=== PATIENT | female | born 1970 | race Caucasian/White ===

== ENCOUNTER → 2017-03-19 | Outpatient (CLI) | payer BC ==
--- NOTE | 2017-03-23 11:28 | MM ---
Reason for exam: screening (asymptomatic). Last mammogram was performed 1 year ago. History: Patient is postmenopausal. Family history of breast cancer in maternal cousin at age 40 and breast cancer in cousin at age 40. Benign ultrasound-guided core biopsy of the left breast, January 28, 2000. Core biopsy of the left breast. Took hormonal contraceptives for 10 years. Physical Findings: A clinical breast exam by your physician is recommended on an annual basis and results should be correlated with mammographic findings. MG 3D Screening Mammo W/Cad Bilateral CC and MLO view(s) were taken. XCCL view(s) were taken of the left breast. Prior study comparison: March 18, 2016, bilateral MG 3d screening mammo w/cad. March 14, 2015, bilateral MG work up mamm w CAD BILAT. The breast tissue is extremely dense which could obscure a lesion on mammography. Finding: There is a 8mm and 6mm oval, round mass in the right breast. Previous mammotome biopsy in the left breast. New finding since March 18, 2016 and March 14, 2015. ASSESSMENT: Incomplete: need additional imaging evaluation, BI-RAD 0 RECOMMENDATION: Ultrasound of the right breast. [facility] will attempt to contact patient to return for ultrasound.
== END ==
LOC: RADMAMWWP 08:09
PROVIDERS: ATTEND Obstetrics & Gynecology
DX: Z12.31 Encounter for screening mammogram for malignant neoplasm of breast (principal); Z80.3 Family history of malignant neoplasm of breast
CPT/HCPCS: 77063; G0202

== ENCOUNTER → 2017-03-25 | Outpatient (CLI) | payer BC ==
--- NOTE | 2017-03-25 12:12 | USB ---
Reason for exam: additional evaluation requested from abnormal screening. History: Patient is postmenopausal. Family history of breast cancer in maternal cousin at age 40 and breast cancer in cousin at age 40. Benign ultrasound-guided core biopsy of the left breast, January 28, 2000. Core biopsy of the left breast. Took hormonal contraceptives for 10 years. Physical Findings: Nurse did not find any significant physical abnormalities on exam. US Breast Workup RT Right breast ultrasound includes all four quadrants, the retroareolar region and axilla. Finding demonstrates a 0.3 x 0.4 x 0.2cm stable, benign, oval lesion too small to characterize at 12 o'clock, a 0.8 x 1.1 x 0.5cm oval, mixed lesion at 4 o'clock versus 7 x 8 x 6mm previously, increased in size not with internal echoes, this may correspond to the mammographic finding for which a 6 month follow up is recommended, a 0.3 x 0.3 x 0.1cm oval lesion too small to characterize at 6 o'clock, likely cystic, a 0.6 x 0.5 x 0.2cm oval, benign, cystic lesion at 8 o'clock, a 0.6 x 0.4 x 0.2cm cystic cluster at 8 o'clock, a 1.1 x 1.1 x 0.3cm oval, mixed lesion at 9 o'clock for which a 6 month follow up is recommended, a 0.5 x 0.3 x 0.3cm oval, hypoechoic lesion at 9 o'clock for which a 6 month follow up is recommended and a 0.5 x 0.8 x 0.2cm oval, hypoechoic lesion at 9 o'clock for which a 6 month follow up is recommended. These 9 o'clock areas were not seen on 03/14/15. These results were verbally communicated with the patient and result sheet given to the patient on 03/25/17. ASSESSMENT: Probably benign, BI-RAD 3 RECOMMENDATION: Ultrasound of the right breast in 6 months. (attention 4 o'clock and 9 o'clock x 3)
== END | disposition home or self-care (01) ==
LOC: RADUSWWP 07:10
PROVIDERS: ATTEND Obstetrics & Gynecology
DX: R92.8 Other abnormal and inconclusive findings on diagnostic imaging of breast (principal)

== ENCOUNTER → 2018-10-12 | Outpatient (CLI) | payer BC ==
[2018-10-12 08:39] LABS: Basophils % (A) 1 %; Eosinophils # (A) 0.1 k/uL (0-0.7); Eosinophils % (A) 4 %; HCT 41.2 % (34.0-46.0); HGB 13.5 gm/dL (11.4-16.0); Lymphocytes # (A) 1.1 k/uL (1.0-4.8); Lymphocytes % (A) 32 %; MCH 29.6 pg (25.0-35.0); MCHC 32.9 g/dL (31.0-37.0); Mean Platelet Volume 6.8; Monocytes # (A) 0.2 k/uL (0-1.0); Monocytes % (A) 6 %; Neutrophils # (A) 1.9 k/uL (1.3-7.7); Neutrophils % (A) 55 %; Platelet Count 277 k/uL (150-450); RBC 4.58 m/uL (3.80-5.40); RDW 13.7 % (11.5-15.5); WBC 3.4 k/uL (3.8-10.6)
[2018-10-12 16:24] LABS: T4, Free (Free Thyroxine) 1.1 ng/dL (0.80-1.80)
[2018-10-12 16:26] LABS: Albumin 4.6 g/dL (3.80-4.90); Albumin/Globulin Ratio 2.56 (1.60-3.17); Anion Gap 6.8 mmol/L (4.00-12.00); Calcium 9.4 mg/dL (8.7-10.3); Carbon Dioxide 27.2 mmol/L (21.6-31.8); Globulin 1.8 g/dL (1.6-3.3); Potassium 4.2 mmol/L (3.5-5.5); Total Bilirubin 0.7 mg/dL (0.2-1.2); Total Protein 6.4 g/dL (6.2-8.2)
[2018-10-12 16:41] LABS: Gliadin AB IgA, Unit 1.4 U/mL
== END | disposition home or self-care (01) ==
LOC: LABWHC1 07:58
PROVIDERS: ATTEND Internal Medicine
DX: R19.4 Change in bowel habit (principal)
CPT/HCPCS: 36415; 80053; 82150; 83516; 83690; 84439; 84443; 85025

== ENCOUNTER → 2018-10-12 | Outpatient (CLI) | payer BC ==
--- NOTE | 2018-10-12 08:26 | USB ---
Reason for exam: follow-up at short interval from prior study. History: Patient is postmenopausal. Family history of breast cancer in maternal cousin at age 40 and breast cancer in cousin at age 40. Benign ultrasound-guided core biopsy of the left breast, January 28, 2000. Core biopsy of the left breast. Took hormonal contraceptives for 10 years. Physical Findings: Nurse did not find any significant physical abnormalities on exam. US Breast LT Left complete breast ultrasound includes all four quadrants, the retroareolar region and axilla. Finding demonstrates a 6 x 3 x 6mm oval, lobular, cystic, benign lesion at 1 o'clock, a 2 x 2 x 3mm oval, hypoechoic, minimally complicated cyst at 3 o'clock, a 5 x 5 x 5mm oval, cystic, benign lesion at 4 o'clock, a 6 x3 x 6mm lobular, cystic lesion at 5 o'clock likely represent with BI-RAD 3 mass by description, prior measurement of 1.6 x 0.7 x 1.3cm, no growth, no other suspicious mass at 4-5 o'clock, a 7 x 4 x 4mm lobular, cystic, benign lesion at 11 o'clock and a 8 x 4 x 6mm oval, cystic, benign lesion at the posterior nipple. Outside report only ultrasound images no available for comparison. These results were verbally communicated with the patient and result sheet given to the patient on 10/12/18. ASSESSMENT: Probably benign, BI-RAD 3 RECOMMENDATION: Follow-up diagnostic mammogram of both breasts in 6 months. Ultrasound of the left breast in 6 months. (attention 4-5 o'clock, patient will be due for bilateral mammogram in March 2019)
== END | disposition home or self-care (01) ==
LOC: RADUSWWP 07:09
PROVIDERS: ATTEND Obstetrics & Gynecology
DX: Z09 Encounter for follow-up examination after completed treatment for conditions other than malignant neoplasm (principal)

== ENCOUNTER 2018-10-14 12:48 | Day surgery (SDC) | payer BC ==
[2018-10-13 08:46] VITALS: BMI 21.0
[2018-10-14 13:20] LABS: Glucose,Whole Blood 72 mg/dL (75-99)
[2018-10-14 13:24] VITALS: TEMP 98.1
[2018-10-14] MEDS ORDERED: LIDOCAINE 1% 20 ML VIAL (10MG/ML) FOR IV START INTRADERMA ONE (13:30)
[2018-10-14] MEDS ORDERED: DEXTROSE 50% SYRINGE 50 ML IVP ONE (13:30)
[2018-10-14] MEDS: IV FLUID CONTINUATION 1,000 ML IV ONE (13:36)
[2018-10-14] MEDS ORDERED: LACTATED RINGERS 1,000 ML IV ONE (13:36)
[2018-10-14] MEDS ORDERED: MIDAZOLAM (PF) 2 MG/2 ML VIAL IV ONE (13:38)
[2018-10-14] MEDS ORDERED: PROPOFOL 10 MG/ML 20 ML VIAL IV ONE (13:46)
[2018-10-14] MEDS ORDERED: fentaNYL (PF) 50 MCG/ML 2 ML AMP ONE (13:46)
[2018-10-14] MEDS ORDERED: MIDAZOLAM 2 MG/2 ML VIAL ONE (13:46)
[2018-10-14 13:55] LABS: Glucose,Whole Blood 126 mg/dL (75-99)
[2018-10-14 14:42] VITALS: PULSE 75; RESP 16
--- NOTE | 2018-10-14 14:42 | P.PCN ---
Date of Procedure: 10/14/18 Description of Procedure: BRIEF HISTORY: 48-year-old female who was seen in the outpatient setting for alternating constipation and diarrhea. The patient had previously been on a fiber supplement which she had stopped earlier in the year. When seen in evaluation she has reported increased gaseous distention. She also has a history of hemorrhoidal disease which she reports that within inflamed prior to presentation. She states her last colonoscopy was approximately 10 years ago a nd done in evaluation of bleeding around her periods which she says was secondary to endometriosis. She reports a burning uncomfortable feeling mainly occurring on the left side of her abdomen. PROCEDURE PERFORMED: Colonoscopy with biopsy. PREOPERATIVE DIAGNOSIS: Altered bowel habits, bright red blood per rectum, last colonoscopy approximately 10 years ago, lower abdominal pain. ESTIMATED BLOOD LOSS: Minimal. IV sedation per Anesthesia. PROCEDURE: After informed consent was obtained, the patient, was brought into the endoscopy unit. IV sedation was administered by Anesthesia under continuous monitoring. Digital rectal examination was normal. Initially the Olympus CF-190 flexible video colonoscope was then inserted in the rectum, gradually advanced into the cecum without any difficulty. Careful examination was performed as the scope was gradually being withdrawn. Ileocecal valve and the appendiceal orifice were visualized and appeared normal. Terminal ileum intubated and biopsied. Prep was excellent. Mucosa of the cecum, ascending colon, transverse colon, descending colon, sigmoid colon, and rectum appeared normal, With random biopsies of the right colon, transverse colon and left colon in the setting of altered bowel habits. Retroflexion was performed in the rectum and no lesions were seen, Mild internal hemorrhoids noted. The patient tolerated the procedure well. IMPRESSION: Normal-appearing colon from rectum to cecum and terminal ileum with random biopsies of the terminal ileum, right colon, transverse colon and left colon. Mild internal hemorrhoids. RECOMMENDATIONS: Findings of this examination were discussed with the patient. Okay to resume diet. Continue treatment with fiber supplement and hyoscyamine as needed for pain. Follow up with GI as previously scheduled. Await pathology from biopsies.
[2018-10-14 15:06] VITALS: BP 108/76
[2018-10-14 15:29] LABS: Glucose,Whole Blood 83 mg/dL (75-99)
== END 2018-10-14 15:28 | disposition home or self-care (01) ==
LOC: ORWHC2ENDO 12:48
PROVIDERS: ATTEND Internal Medicine
DX: K59.00 Constipation, unspecified (principal); K62.5 Hemorrhage of anus and rectum; R19.7 Diarrhea, unspecified; K64.8 Other hemorrhoids; E16.1 Other hypoglycemia; Z88.5 Allergy status to narcotic agent; Z88.0 Allergy status to penicillin; Z88.8 Allergy status to other drugs, medicaments and biological substances
CPT/HCPCS: 81025; 88305; 45380; J2250 ×2; J3010; J2704

== ENCOUNTER → 2018-10-20 | Outpatient (CLI) | payer BC ==
[2018-10-20 08:27] LABS: Basophils % (A) 1 %; Eosinophils # (A) 0.1 k/uL (0-0.7); Eosinophils % (A) 3 %; HGB 13.5 gm/dL (11.4-16.0); Lymphocytes # (A) 1.2 k/uL (1.0-4.8); Lymphocytes % (A) 29 %; MCH 28.7 pg (25.0-35.0); MCHC 31.3 g/dL (31.0-37.0); MCV 91.6 fL (80.0-100.0); Mean Platelet Volume 6.7; Monocytes # (A) 0.3 k/uL (0-1.0); Monocytes % (A) 7 %; Neutrophils # (A) 2.4 k/uL (1.3-7.7); Neutrophils % (A) 57 %; Platelet Count 245 k/uL (150-450); RDW 13.1 % (11.5-15.5); WBC 4.3 k/uL (3.8-10.6)
[2018-10-20 12:23] LABS: ALT 22 U/L (8-44); AST 22 U/L (13-35); Albumin/Globulin Ratio 2.35 (1.60-3.17); Alkaline Phosphatase 42 U/L (41-126); Calcium 9.6 mg/dL (8.7-10.3); Carbon Dioxide 26.5 mmol/L (21.6-31.8); Chloride 107 mmol/L (96-109); Cholesterol 182 mg/dL (0-200); Glucose 70 mg/dL (70-110); Potassium 4.3 mmol/L (3.5-5.5); Sodium 141 mmol/L (135-145); Total Bilirubin 0.9 mg/dL (0.3-1.2); Total Protein 6.7 g/dL (6.2-8.2); Triglycerides <50.0 mg/dL (0.0-149.0); VLDL Calculation 9.98 mg/dL (5.00-40.00)
[2018-10-20 14:31] LABS: Hemoglobin A1C 5.7 % (4.0-6.0)
== END ==
LOC: LABWHC1 06:50
PROVIDERS: ATTEND Family Medicine
DX: R73.9 Hyperglycemia, unspecified (principal)
CPT/HCPCS: 36415; 80053; 80061; 83036; 84443; 85025

== ENCOUNTER → 2019-04-18 | Outpatient (CLI) | payer BC ==
--- NOTE | 2019-04-18 09:40 | USB ---
EXAMINATION TYPE: US breast limited LT DATE OF EXAM: 04/18/2019 COMPARISON: Mammography of the same date and ultrasound dated 10/12/2018. CLINICAL HISTORY: R92.8 ABNORMAL MAMMO. FINDINGS/TECHNIQUE: Left breast ultrasound was performed from the 3:00 to the phase o'clock position as a follow-up to the exam of 09/25/2018. Breast ultrasound also included the retroareolar and axillar y locations. Grayscale and color imaging was performed. At the 3:00 position there is a stable 0.3 x 0.3 x 0.2 cm cyst in the left breast. At the 4:00 positi on there is a 0.7 x 0.4 x 0.4 cm complicated cyst (prior measurements of 0.5 x 0.5 x 0.5 cm). Overall similar size and increased through transmission. This is benign. At the 5:00 position in zone a (are a of interest) there is a 0.5 x 0.4 x 0.3 cm hypoechoic mass with increased through transmission jabier cative of a complicated cyst, smaller than the prior where this measured 0.6 x 0.3 x 0.6 cm also jabier cating benign etiology. Additionally at the 6:00 position on the left in zone a there is a 0.7 x 0.4 x 0.4 cm mass that is new from the prior however without harmonics clear increased through transmissi on is seen and therefore this also represents a complicated cyst. All of these appear benign. Annual screening mammography is recommended. IMPRESSION: BI-RADS 2-benign findings. Screening mammography is recommended.
--- NOTE | 2019-04-18 13:13 | MM ---
Reason for exam: additional evaluation requested from prior study. Last mammogram was performed 2 years and 1 month ago. History: Patient is postmenopausal. Family history of breast cancer in maternal cousin at age 40 and breast cancer in cousin at age 40. Benign ultrasound-guided core biopsy of the left breast, January 28, 2000. Core biopsy of the left breast. Took hormonal contraceptives for 10 years. Physical Findings: Nurse did not find any significant physical abnormalities on exam. MG 3D Diag Mammo W/Cad EDWIGE Bilateral CC and MLO view(s) were taken. Prior study comparison: March 19, 2017, bilateral MG 3d screening mammo w/cad. March 18, 2016, bilateral MG 3d screening mammo w/cad. The breast tissue is heterogeneously dense. This may lower the sensitivity of mammography. There are benign appearing round oval circumscribed masses waxing and waning over multiple priors. Prior ultrasound demonstrates cysts. No new suspicious abnormality. These results were verbally communicated with the patient and result sheet given to the patient on 04/18/19. ASSESSMENT: Incomplete: need additional imaging evaluation, BI-RAD 0 RECOMMENDATION: Ultrasound of the left breast. (3-6, attention 5 o'clock)
== END | disposition home or self-care (01) ==
LOC: RADMAMWWP 08:14
PROVIDERS: ATTEND Obstetrics & Gynecology
DX: R92.8 Other abnormal and inconclusive findings on diagnostic imaging of breast (principal)
CPT/HCPCS: 77062; 77066

== ENCOUNTER → 2019-08-18 | Outpatient (CLI) | payer BC ==
--- NOTE | 2019-08-18 09:31 | CT ---
EXAMINATION TYPE: CT sinus wo con DATE OF EXAM: 08/18/2019 COMPARISON: 11/29/2014 HISTORY: 49-year-old female Recurrent sinus drainage, epistaxis, facial pressure CT DLP: 705.9 mGycm Automated exposure control for dose reduction was used. TECHNIQUE: Noncontrast axial views of the paranasal sinuses were obtained. Coronal reconstructions pe rformed. FINDINGS: PARANASAL SINUSES: Large 2.6 cm mucosal retention cyst left maxillary sinus with moderate mucosal thickening. Additional moderate mucosal thickening right maxillary sinus and scattered throughout the ethmoid air cells. Sphenoid and frontal sinuses are well pneumatized. frontal, ethmoid, maxillary and sphenoid sinuses are clear and well pneumatized. There is no mucosal thickening or air-fluid level. Reactive keshawn- osteogenesis is not seen. There is no destruction of the osseous sal[place] of the paranasal sinuses. THE NASAL CAVITY: There is opacification at the bilateral maxillary infundibula. The nasal septum is not significantly deviated. The imaged brain and orbits are normal in appearance. Only a portion of the mastoid air cells are visualized and appear clear. Reformatted images confirm above findings. IMPRESSION: Moderate chronic maxillary and ethmoid sinus disease. While there has been slight improvement in aera tion of the ethmoid air cells, a mucosal retention cyst in the left maxillary sinus has significantly increased in size currently measuring 2.6 cm.
== END | disposition home or self-care (01) ==
LOC: RADCTMAIN 06:53
PROVIDERS: ATTEND Otolaryngology
DX: J32.0 Chronic maxillary sinusitis (principal); J32.2 Chronic ethmoidal sinusitis
CPT/HCPCS: 70486

== ENCOUNTER → 2020-04-24 | Outpatient (CLI) | payer BC ==
--- NOTE | 2020-04-25 08:32 | MM ---
Reason for exam: screening (asymptomatic). Last mammogram was performed 1 year ago. History: Patient is postmenopausal. Family history of breast cancer in maternal cousin at age 40 and breast cancer in cousin at age 40. Benign ultrasound-guided core biopsy of the left breast, January 28, 2000. Core biopsy of the left breast. Took hormonal contraceptives for 10 years. Physical Findings: A clinical breast exam by your physician is recommended on an annual basis and results should be correlated with mammographic findings. MG 3D Screening Mammo W/Cad Bilateral CC and MLO view(s) were taken. Prior study comparison: April 18, 2019, bilateral MG 3d diag mammo w/cad EDWIGE. March 19, 2017, bilateral MG 3d screening mammo w/cad. The breast tissue is heterogeneously dense. This may lower the sensitivity of mammography. There is no discrete abnormality. No significant changes when compared with prior studies. ASSESSMENT: Benign, BI-RAD 2 RECOMMENDATION: Routine screening mammogram of both breasts in 1 year.
== END | disposition home or self-care (01) ==
LOC: RADMAMWWP 10:53
PROVIDERS: ATTEND Obstetrics & Gynecology
DX: Z12.31 Encounter for screening mammogram for malignant neoplasm of breast (principal)
CPT/HCPCS: 77063; 77067

== ENCOUNTER → 2021-05-06 | Outpatient (CLI) | payer BC ==
--- NOTE | 2021-05-06 15:43 | XR ---
EXAMINATION TYPE: XR chest 2V DATE OF EXAM: 05/06/2021 COMPARISON: Chest x-ray dated 06/05/2015 HISTORY: Covid positive TECHNIQUE: Frontal and lateral views of the chest are obtained. FINDINGS: There is no pleural effusion or pneumothorax seen. Question some vague patchy areas of in creased attenuation right upper lobe. The cardiac silhouette size is within normal limits. The osse ous structures are intact. IMPRESSION: Correlate for possible pneumonia
== END | disposition home or self-care (01) ==
LOC: RADXRMAIN 15:11
PROVIDERS: ATTEND Family Medicine
DX: U07.1 COVID-19 (principal)
CPT/HCPCS: 71046

== ENCOUNTER → 2021-06-10 | Outpatient (CLI) | payer BC ==
--- NOTE | 2021-06-10 15:12 | MM ---
Reason for exam: additional evaluation requested from prior study. Last mammogram was performed 1 year and 2 months ago. History: Patient is postmenopausal and is nulliparous. Family history of breast cancer in 2 maternal cousins at age 40. Benign ultrasound-guided core biopsy of the left breast, January 28, 2000. Core biopsy of the left breast. Took hormonal contraceptives for 10 years beginning at age 21. Taking estrogen for 8 years beginning at age 30. Taking progesterone for 8 years beginning at age 30. Physical Findings: Nurse Summary: 0.5cm nodule in the left breast at 5 o'clock (nurse ms). MG 3D Diag Mammo W/Cad EDWIGE Bilateral CC and MLO view(s) were taken. Prior study comparison: April 24, 2020, bilateral MG 3d screening mammo w/cad. April 18, 2019, bilateral MG 3d diag mammo w/cad EDWIGE. The breast tissue is heterogeneously dense. This may lower the sensitivity of mammography. Previous mammotome biopsy in the left breast. There is no discrete abnormality including area of concern left lower outer quadrant. These results were verbally communicated with the patient and result sheet given to the patient on 06/10/21. ASSESSMENT: Incomplete: need additional imaging evaluation, BI-RAD 0 RECOMMENDATION: Ultrasound of the left breast.
--- NOTE | 2021-06-10 15:13 | USB ---
Reason for exam: additional evaluation requested from abnormal screening. History: Patient is postmenopausal and is nulliparous. Family history of breast cancer in 2 maternal cousins at age 40. Benign ultrasound-guided core biopsy of the left breast, January 28, 2000. Core biopsy of the left breast. Took hormonal contraceptives for 10 years beginning at age 21. Taking estrogen for 8 years beginning at age 30. Taking progesterone for 8 years beginning at age 30. US Breast Limited LT Left limited breast ultrasound including focal area of concern, retroareolar and axilla demonstrates a 0.4 x 0.4 x 0.4cm round, cystic lesion at 3 o'clock. These results were verbally communicated with the patient and result sheet given to the patient on 06/10/21. ASSESSMENT: Probably benign, BI-RAD 3 RECOMMENDATION: Ultrasound of the left breast in 6 months.
== END | disposition home or self-care (01) ==
LOC: RADMAMWWP 13:41
PROVIDERS: ATTEND Family Medicine
DX: N63.20 Unspecified lump in the left breast, unspecified quadrant (principal); R92.8 Other abnormal and inconclusive findings on diagnostic imaging of breast
CPT/HCPCS: 77062; 77066

== ENCOUNTER → 2021-10-04 | Outpatient (CLI) | payer BC ==
--- NOTE | 2021-10-21 13:08 | EM ---
EVENT MONITOR 14 DAY EVENT MONITOR: INDICATION: Palpitations. Underlying rhythm is sinus. There were episodes of short self-limited runs of SVT that could represent episodes of atrial fibrillation. CONCLUSIONS: 1. This 14 day event monitor shows sinus rhythm. 2. There were self-limited runs of narrow complex tachycardia that could represent paroxysmal episodes of atrial fibrillation. MMODL / IJN: [id number] /
== END | disposition home or self-care (01) ==
LOC: RADECHMAIN 07:13
PROVIDERS: ATTEND Family Medicine
DX: R00.2 Palpitations (principal)
CPT/HCPCS: 93270

== ENCOUNTER → 2021-12-10 | Outpatient (CLI) | payer BC ==
--- NOTE | 2021-12-10 17:31 | CA ---
Transthoracic Echo Report Name: Hayley Garrett Age: 51 Gender: F : 1970 Exam Date: 12/10/2021 14:23 Exam Location: [facility] Ht (in): 65 Wt (lb): 115 Ordering Physician: Arpita Coon MD ([id number]) Attending/Referring Phys: Kennel Helper Odalys Guzman RDCS Procedure CPT: Indications: R00.2 palpitations Cardiac Hx: Technical Quality: Good Contrast 1: Total Dose (mL): Contrast 2: Total Dose (mL): MEASUREMENTS (Male / Female) Normal Values 2D ECHO LV Diastolic Diameter PLAX 3.6 cm 4.2 - 5.9 / 3.9 - 5.3 cm LV Systolic Diameter PLAX 2.6 cm IVS Diastolic Thickness 0.9 cm 0.6 - 1.0 / 0.6 - 0.9 cm LVPW Diastolic Thickness 0.8 cm 0.6 - 1.0 / 0.6 - 0.9 cm LV Relative Wall Thickness 0.5 RV Internal Dim ED PLAX 1.7 cm LA Volume 41.9 cm??? 18 - 58 / 22 - 52 cm??? M-MODE Aortic Root Diameter MM 3.2 cm LA Systolic Diameter MM 2.1 cm LA Ao Ratio MM 0.7 MV E Point Septal Separation 0.9 cm AV Cusp Separation MM 1.8 cm DOPPLER AV Peak Velocity 125.7 cm/s AV Peak Gradient 6.3 mmHg MV Area PHT 4.3 cm??? MR Peak Velocity 309.4 cm/s MR Peak Gradient 38.3 mmHg Mitral E Point Velocity 77.7 cm/s Mitral A Point Velocity 63.7 cm/s Mitral E to A Ratio 1.2 MV Deceleration Time 176.8 ms MV E' Velocity 10.5 cm/s Mitral E to MV E' Ratio 7.4 TR Peak Velocity 198.3 cm/s TR Peak Gradient 15.7 mmHg Right Ventricular Systolic Press 19.2 mmHg FINDINGS Left Ventricle Normal Left ventricular size, wall thickness, systolic function with no obvious regional wall motion abnormalities. Normal Left ventricular diastolic filling pattern. Left ventricular ejection fraction is estimated at 55-60 %. Right Ventricle The right ventricle is normal in size and function. Right Atrium The right atrium is normal in size. Left Atrium The left atrium is normal in size. Mitral Valve Structurally normal mitral valve without significant stenosis or prolapse. There is trace mitral regurgitation. Aortic Valve Structurally normal aortic valve without significant sclerosis or stenosis. There is no aortic regurgitation. Tricuspid Valve Structurally normal tricuspid valve without significant stenosis. Pulmonary artery systolic pressure is normal. Trace tricuspid regurgitation. Pulmonic Valve Structurally normal pulmonic valve without significant stenosis. There is no pulmonic regurgitation. Pericardium Normal pericardium without effusion. Aorta Normal aortic root dimension. CONCLUSIONS Normal LV systolic function Previewed by: Dr. Kwame Aranda MD (Electronically Signed) Final Date: 10 December 2021 17:30
== END | disposition home or self-care (01) ==
LOC: RADECHMAIN 13:56
PROVIDERS: ATTEND Internal Medicine Interventional Cardiology
DX: R00.2 Palpitations (principal)
CPT/HCPCS: 93306

== ENCOUNTER → 2021-12-10 | Outpatient (CLI) | payer BC ==
--- NOTE | 2021-12-10 15:19 | USB ---
Reason for Exam: Follow-up at short interval from prior study. Patient History: Menarche at age 11. Patient has no children. Postmenopausal. Currently using Estrogen, beginning at age 30 for 8 years. Currently using Progesterone, beginning at age 30 for 8 years. Hormonal Contraceptives, starting at age 21 for 10 years. Core Biopsy on the Left side. 01/28/2000, Benign Ultrasound-Guided Core Biopsy on the left side. Maternal cousin had breast cancer, age 40. Maternal cousin had breast cancer, age 40. Risk Values: Lucita 5 year model risk: 1.8%. NCI Lifetime model risk: 15.5%. Technique: Method: Targeted. Prior Study Comparison: 04/18/2019 Bilateral Diagnostic Mammogram, [facility]. 04/24/2020 Bilateral Screening Mammogram, [facility]. 06/10/2021 Bilateral Diagnostic Mammogram, [facility]. Findings: The lateral section of the breast of the left breast and the retroareolar of the left breast were scanned. Targeted left breast ultrasound 2-3 o'clock including the subareolar region. At the 3:00 position, 3 cm from the nipple, there is a stable 4 x 3 x 3 mm lesion. Currently anechoic compatible with a benign cyst. The previous internal debris has cleared. Behind the nipple, an additional benign 1 cm oval cyst is present. Background dense fibroglandular tissue. Patient's annual follow-up in 6 months can be performed in diagnostic clinic. Overall Assessment: Probably benign, BI-RAD 3 Management: Diagnostic Mammogram of both breasts in 6 months. 1. Patient should continue monthly self breast exams. 2. A clinical breast exam by your physician is recommended on an annual basis. 3. This exam should not preclude additional follow-up of suspicious palpable abnormalities. Results were given to the patient verbally at the time of exam. Electronically signed and approved by: Moo Hewitt M.D. Radiologist
== END | disposition home or self-care (01) ==
LOC: RADUSWWP 14:45
PROVIDERS: ATTEND Family Medicine
DX: R92.8 Other abnormal and inconclusive findings on diagnostic imaging of breast (principal)

== ENCOUNTER → 2022-02-11 | Outpatient (CLI) | payer BC ==
[2022-02-11 18:59] LABS: Cancer Antigen 125 7.1 U/mL (0.0-30.1)
== END | disposition home or self-care (01) ==
LOC: LABWHC1 07:27
DX: D64.9 Anemia, unspecified (principal); E11.9 Type 2 diabetes mellitus without complications; E03.9 Hypothyroidism, unspecified; I10 Essential (primary) hypertension; E78.2 Mixed hyperlipidemia; E55.9 Vitamin D deficiency, unspecified
CPT/HCPCS: 36415; 82947; 86304

== ENCOUNTER → 2022-06-13 | Outpatient (CLI) | payer BC ==
--- NOTE | 2022-06-13 14:05 | MM ---
Reason for Exam: Follow-up at short interval from prior study. Last screening mammogram was performed 12 month(s) ago. Patient History: Menarche at age 11. Patient has no children. Postmenopausal. Currently using Estrogen, beginning at age 30 for 8 years. Currently using Progesterone, beginning at age 30 for 8 years. Hormonal Contraceptives, starting at age 21 for 10 years. Core Biopsy on the Left side. 01/28/2000, Benign Ultrasound-Guided Core Biopsy on the left side. Maternal cousin had breast cancer, age 40. Maternal cousin had breast cancer, age 40. Risk Values: Lucita 5 year model risk: 1.8%. NCI Lifetime model risk: 15.5%. Tissue Density: The breast tissue is heterogeneously dense. This may lower the sensitivity of mammography. Findings: Analyzed By CAD. No worrisome cluster of microcalcifications within either breast. Biopsy clip within the left breast. No new suspicious mass within either breast. No significant change from prior exams. Overall Assessment: Incomplete: need additional imaging evaluation, BI-RAD 0 Management: Diagnostic Breast Ultrasound of the left breast. A clinical breast exam by your physician is recommended on an annual basis and results should be correlated with mammographic findings. This exam should not preclude additional follow-up of suspicious palpable abnormalities. Results were given to the patient verbally at the time of exam. Electronically signed and approved by: Woody Vickers D.O.
--- NOTE | 2022-06-13 14:21 | USB ---
Reason for Exam: Follow-up at short interval from prior study. Patient History: Menarche at age 11. Patient has no children. Postmenopausal. Currently using Estrogen, beginning at age 30 for 8 years. Currently using Progesterone, beginning at age 30 for 8 years. Hormonal Contraceptives, starting at age 21 for 10 years. Core Biopsy on the Left side. 01/28/2000, Benign Ultrasound-Guided Core Biopsy on the left side. Maternal cousin had breast cancer, age 40. Maternal cousin had breast cancer, age 40. Risk Values: Lucita 5 year model risk: 1.8%. NCI Lifetime model risk: 15.5%. Technique: Method: Targeted. Prior Study Comparison: 04/18/2019 Bilateral Diagnostic Mammogram, [facility]. 04/24/2020 Bilateral Screening Mammogram, [facility]. 06/10/2021 Bilateral Diagnostic Mammogram, [facility]. 12/10/2021 Left US breast limited LT, [facility]. Findings: The area of palpable concern of the left breast, the axilla of the left breast and the retroareolar of the left breast were scanned. Targeted ultrasound of the left breast at 3:00 with also evaluation of the nipple adnexal was performed. Stable anechoic cyst with posterior acoustic enhancement in the left breast at 3:00 3 cm from the nipple measuring up to 3 mm. Overall Assessment: Benign, BI-RAD 2 Management: Screening Mammogram of both breasts in 1 year. A clinical breast exam by your physician is recommended on an annual basis and results should be correlated with mammographic findings. This exam should not preclude additional follow-up of suspicious palpable abnormalities. Results were given to the patient verbally at the time of exam. Electronically signed and approved by: Woody Vickers D.O.
== END | disposition home or self-care (01) ==
LOC: RADMAMWWP 13:29
PROVIDERS: ATTEND Obstetrics & Gynecology
DX: R92.8 Other abnormal and inconclusive findings on diagnostic imaging of breast (principal); Z78.0 Asymptomatic menopausal state; Z80.3 Family history of malignant neoplasm of breast
CPT/HCPCS: 77062; 77066

== ENCOUNTER → 2023-01-07 | Outpatient (CLI) | payer BC ==
[2023-01-07 11:03] LABS: Basophils # (A) 0.02 X 10*3/uL (0.00-0.10); Basophils % (A) 0.6 %; Eosinophils # (A) 0.13 X 10*3/uL (0.04-0.35); Eosinophils % (A) 4.2 %; HCT 41.6 % (37.2-46.3); HGB 13.7 d/dL (12.0-15.0); Lymphocytes # (A) 1.22 X 10*3/uL (0.90-5.00); Lymphocytes % (A) 39.6 %; MCH 29.5 pg (27.0-32.0); MCHC 32.9 d/dL (32.0-37.0); MCV 89.7 FL (80.0-97.0); Mean Platelet Volume 9.1 FL (9.5-12.2); Monocytes # (A) 0.32 X 10*3/uL (0.20-1.00); Monocytes % (A) 10.4 %; NRBC Per 100 WBC 0 X 10*3/uL (0.00-0.01); Neutrophils # (A) 1.38 X 10*3/uL (1.80-7.70); Neutrophils % (A) 44.9 %; Platelet Count 275 X 10*3/uL (140-440); RBC 4.64 X 10*6/uL (4.10-5.20); RDW 12.7 % (11.5-14.5); WBC 3.08 X 10*3/uL (4.50-10.00)
[2023-01-07 11:34] LABS: ALT 23 U/L (8-44); AST 18 U/L (13-35); Albumin 4.8 d/dL (3.8-4.9); Albumin/Globulin Ratio 2.29 Ratio (1.60-3.17); Alkaline Phosphatase 52 U/L (41-126); BUN/Creat Ratio 16.89 Ratio (12.00-20.00); Blood Urea Nitrogen 15.2 mg/dL (9.0-27.0); Calcium 9.8 mg/dL (8.7-10.3); Carbon Dioxide 26.5 mmol/L (21.6-31.8); Chloride 106 mmol/L (96-109); Chol/HDL Ratio 1.95 Ratio; Globulin 2.1 d/dL (1.6-3.3); Glucose 92 mg/dL (70-110); LDL Cholesterol,Calculated 83.1 mg/dL (0.0-131.0); Potassium 4.3 mmol/L (3.5-5.5); Sodium 143 mmol/L (135-145); Total Bilirubin 0.7 mg/dL (0.3-1.2); Total Protein 6.9 d/dL (6.2-8.2); VLDL Calculation 8.22 mg/dL (5.00-40.00)
[2023-01-07 16:11] LABS: Gliadin AB IgA, Deaminated Negative (Negative); Gliadin AB IgA, Unit 4.7 U/mL; Gliadin AB IgG, Deaminated Negative (Negative); Gliadin AB IgG, Unit <0.4 U/mL
== END | disposition home or self-care (01) ==
LOC: LABWHC1 07:05
PROVIDERS: ATTEND Family Medicine
DX: Z00.00 Encounter for general adult medical examination without abnormal findings (principal); R53.83 Other fatigue; R19.7 Diarrhea, unspecified
CPT/HCPCS: 36415; 80053; 80061; 82306; 83516; 84439; 84443; 84481; 85025

== ENCOUNTER → 2023-06-22 | Outpatient (CLI) | payer BC ==
--- NOTE | 2023-06-22 21:00 | MM ---
Reason for Exam: Screening (asymptomatic). Last mammogram was performed 1 year(s) and 1 month(s) ago. Patient History: Menarche at age 11. Patient has no children. Postmenopausal. Currently using Estrogen, for 6 months. Currently using Progesterone, for 8 years, 6 months. Hormonal Contraceptives, starting at age 21 for 10 years. Core Biopsy on the Left side. 01/28/2000, Benign Ultrasound-Guided Core Biopsy on the left side. Maternal cousin had breast cancer, age 40. Maternal cousin had breast cancer, age 40. Risk Values: Lucita 5 year model risk: 1.9%. NCI Lifetime model risk: 15.3%. Prior Study Comparison: 04/24/2020 Bilateral Screening Mammogram, [facility]. 06/10/2021 Bilateral Diagnostic Mammogram, [facility]. 06/13/2022 Bilateral MG 3D diag mammo w/cad EDWIGE, [facility]. Tissue Density: The breast tissue is heterogeneously dense. This may lower the sensitivity of mammography. Findings: Analyzed By CAD. CAD appears symmetrical and stable. No significant interval change is evident. Core markers within the left breast. No suspicious groups of microcalcifications, spiculated or lobular masses, architectural distortion or other secondary signs of malignancy are mammographically apparent. Overall Assessment: Benign, BI-RAD 2 Management: Screening Mammogram of both breasts in 1 year. A negative mammogram report should not preclude additional follow up of suspicious palpable abnormalities. Patient should continue monthly self breast exam. A clinical breast exam by your physician is recommended on an annual basis and results should be correlated with mammographic findings. Electronically signed and approved by: Cuate Mabry D.O. Radiologis
== END | disposition home or self-care (01) ==
LOC: RADMAMWWP 08:07
PROVIDERS: ATTEND Obstetrics & Gynecology
DX: Z12.31 Encounter for screening mammogram for malignant neoplasm of breast (principal); Z78.0 Asymptomatic menopausal state; Z80.3 Family history of malignant neoplasm of breast
CPT/HCPCS: 77063; 77067

== ENCOUNTER → 2023-09-21 | Outpatient (CLI) | payer BC ==
[2023-09-21 16:30] LABS: Thyroid Peroxidase Antibodies 9.3 U/mL (0.0-33.0)
[2023-09-21 16:48] LABS: ALT 24 U/L (8-44); AST 17 U/L (13-35); Albumin 5.1 g/dL (3.8-4.9); Albumin/Globulin Ratio 2.04 Ratio (1.60-3.17); Alkaline Phosphatase 70 U/L (41-126); BUN/Creat Ratio 16.75 Ratio (12.00-20.00); Blood Urea Nitrogen 13.4 mg/dL (9.0-27.0); Calcium 10.3 mg/dL (8.7-10.3); Carbon Dioxide 26.7 mmol/L (21.6-31.8); Chloride 105 mmol/L (96-109); Globulin 2.5 g/dL (1.6-3.3); Glucose 109 mg/dL (70-110); Potassium 4.4 mmol/L (3.5-5.5); Sodium 144 mmol/L (135-145); T4, Free (Free Thyroxine) 1.12 ng/dL (0.80-1.80); Total Bilirubin 0.5 mg/dL (0.3-1.2); Total Protein 7.6 g/dL (6.2-8.2)
[2023-09-21 17:07] LABS: HCT 43.1 % (37.2-46.3); MCH 29.2 pg (27.0-32.0); MCHC 32.5 g/dL (32.0-37.0); Mean Platelet Volume 9.8 FL (9.5-12.2); NRBC Per 100 WBC 0 X 10*3/uL (0.00-0.01); Platelet Count 334 X 10*3/uL (140-440); RBC 4.79 X 10*6/uL (4.10-5.20); RDW 12.7 % (11.5-14.5); WBC 3.94 X 10*3/uL (4.50-10.00)
== END | disposition home or self-care (01) ==
LOC: LABWHC1 11:54
PROVIDERS: ATTEND Internal Medicine Endocrinology, Diabetes & Metabolism
DX: E55.9 Vitamin D deficiency, unspecified (principal); R53.83 Other fatigue; Z83.3 Family history of diabetes mellitus
CPT/HCPCS: 36415; 80053; 82306; 82533; 82607; 83036; 84146; 84439; 84443; 84481; 85027; 86376; 86800

== ENCOUNTER → 2023-12-21 | Outpatient (CLI) | payer BC ==
--- NOTE | 2023-12-21 10:51 | XR ---
EXAMINATION TYPE: XR ribs LT DATE OF EXAM: 12/21/2023 COMPARISON: 05/06/2021 HISTORY: 53-year-old female left upper rib pain W19.XXXA UNSPECIFIED FALL, INITIAL ENCOUNTER TECHNIQUE: 4 views FINDINGS: No displaced left rib fracture seen. Visualized left hemithorax appears clear. IMPRESSION: No displaced left rib fracture seen.
== END | disposition home or self-care (01) ==
LOC: RADXRMAIN 10:08
PROVIDERS: ATTEND Family Medicine
DX: R07.81 Pleurodynia (principal); W19.XXXA Unspecified fall, initial encounter

== ENCOUNTER 2024-02-05 08:48 | Emergency (ER) | payer BC ==
[2024-02-05] MEDS ORDERED: ACETAMINOPHEN TAB 500 MG TAB ONE (09:26)
[2024-02-05] MEDS ORDERED: LIDOCAINE 2% INJ 20 MG/ML (20 ML MDV) ONE (09:26)
[2024-02-05] MEDS ORDERED: DIPH,PERTUS(ACELL)TETVAC-LF 0.5 ML VIAL IM ONE (09:27)
--- NOTE | 2024-02-29 09:06 | XR ---
Patient: Hayley Garrett A Ordering Physician: Unknown, Unknown ID: [id number] Phone, Pager: Phone : N/A Pager: N/A : 1970 Age/Gender: 53Y, F Primary Location: N/A Procedure: XR hand LIMITED R T Study Date: 02/05/2024 10:08:28 AM EXAMINATION TYPE: XR hand complete RT DATE OF EXAM: 02/05/2024 COMPARISON: None HISTORY: Laceration first digit TECHNIQUE: 2 view right hand FINDINGS: Right hand is examined in 3 projections. No acute fracture or dislocation is evident. Soft tissues appear normal. Soft tissue injury is not identified. No radiopaque foreign bodies evident. Follow-up exam can be performed 7-10 days from acute trauma for continued pain. IMPRESSION: 1. No acute osseous abnormality right hand.
== END 2024-02-05 12:30 | disposition home or self-care (01) ==
LOC: EC 08:48
CPT/HCPCS: 12001; 90471; 90715; 96374

== ENCOUNTER → 2024-06-23 | Outpatient (CLI) | payer BC ==
--- NOTE | 2024-06-23 10:42 | MM ---
Reason for Exam: Screening (asymptomatic). Last screening mammogram was performed 12 month(s) ago. Patient History: Menarche at age 11. Patient has no children. Postmenopausal. Currently using Estrogen, for 6 months. Currently using Progesterone, for 8 years, 6 months. Hormonal Contraceptives, starting at age 21 for 10 years. Core Biopsy on the Left side. 01/28/2000, Benign Ultrasound-Guided Core Biopsy on the left side. Maternal cousin had breast cancer, age 40. Maternal cousin had breast cancer, age 40. Risk Values: Lucita 5 year model risk: 2.0%. NCI Lifetime model risk: 15.0%. Prior Study Comparison: 06/10/2021 Bilateral Diagnostic Mammogram, [facility]. 06/13/2022 Bilateral MG 3D diag mammo w/cad EDWIGE, [facility]. 06/22/2023 Bilateral MG 3D screening mammo w/cad, [facility]. Tissue Density: The breasts are heterogeneously dense, which may obscure small masses. Findings: Analyzed By CAD. Left breast biopsy clip. Right breast: There is no suspicious group of microcalcifications or new suspicious mass. Left breast: There is no suspicious group of microcalcifications or new suspicious mass. Overall Assessment: Benign, BI-RAD 2 Management: Screening Mammogram of both breasts in [address] [facility] will attempt to contact patient to return for supplemental views and ultrasound if indicated. Patient should continue monthly self-breast exams. A clinical breast exam by your physician is recommended on an annual basis. This exam should not preclude additional follow-up of suspicious palpable abnormalities. Note on Lucita scores and lifetime risk: 1. A Lucita score greater than 3% is considered moderate risk. If this is the case, consider specialist referral to assess eligibility for a risk reducing agent. 2. If overall lifetime risk for the development of breast cancer is 20% or higher, the patient may qualify for future screening with alternating mammogram and breast MRI. [facility], , 06/23/2024 10:39 AM. Electronically signed and approved by: Hiro Person DO
== END | disposition home or self-care (01) ==
LOC: RADMAMWWP 08:41
PROVIDERS: ATTEND Obstetrics & Gynecology
DX: Z12.31 Encounter for screening mammogram for malignant neoplasm of breast (principal); Z78.0 Asymptomatic menopausal state; Z80.3 Family history of malignant neoplasm of breast; R92.333 Mammographic heterogeneous density, bilateral breasts; Z98.82 Breast implant status
CPT/HCPCS: 77063; 77067